=== PATIENT | male | born 1940 | race Caucasian/White ===

== ENCOUNTER 2016-11-04 08:37 | Outpatient (CLI) | payer MEDICARE ==
[~2016-11-04] VITALS: Ht 182.9 cm; Wt 77.1 kg
[2016-11-04] VITALS (14 sets, daily range): BP systolic 104–154; BP diastolic 44–88
[2016-11-04 09:11] LABS: MEAN PLATELET VOLUME 9.8 FL (7.4-10.4); RED BLOOD COUNT 4.09 10^6/uL (4.35-5.85); RED CELL DISTRIBUTION WIDTH 16.6 % (10.0-14.5); WHITE BLOOD COUNT 10.4 10^3/uL (4.3-11.0)
[2016-11-04 09:18] LABS: PROTHROMBIN TIME PATIENT 13.2 SEC (12.2-14.7)
[2016-11-04] MEDS ORDERED: LIDOCAINE 1% INJ 20 ML (XYLOCAINE) VIAL INJ ONE (09:30)
[2016-11-04] MEDS ORDERED: fentaNYL INJECTION 100 MCG/2 ML AMP IVP ONE (09:30)
[2016-11-04] MEDS ORDERED: LIDOCAINE 1% INJ 20 ML (XYLOCAINE) VIAL ONE (09:34)
[2016-11-04] MEDS ORDERED: CLOP75TA69 PO (10:45)
[2016-11-04] MEDS ORDERED: SIME80TA16 PO (10:45)
[2016-11-04] MEDS ORDERED: ASPI-808 PO (10:45)
[2016-11-04] MEDS ORDERED: ATOR40TA70 PO (11:10)
[2016-11-04] MEDS ORDERED: MULT-63 PO (11:10)
[2016-11-04] MEDS ORDERED: SITA100T12 PO (11:10)
[2016-11-04] MEDS ORDERED: LORA10TA7 PO (11:10)
[2016-11-04] MEDS ORDERED: METF500T4 PO (11:10)
[2016-11-04] MEDS ORDERED: BENA20TA72 PO (11:10)
[2016-11-04] MEDS ORDERED: CARV12.53 PO (11:10)
[2016-11-04] MEDS ORDERED: RANI-515 PO (11:10)
--- NOTE | 2016-11-04 11:30 | Progress Note-Pre Operative ---
Pre-Operative Progress Note H&P Reviewed The H&P was reviewed, patient examined and no changes noted. Date H&P Reviewed: Nov 04, 2016 Time H&P Reviewed: 09:30 Pre-Operative Diagnosis: liver mets JUANITA NARANJO MD Nov 04, 2016 11:30
[2016-11-04] MEDS ORDERED: HYDROcodone/APAP 5 MG/325 MG (LORTAB) TAB PO PRN (11:45)
--- NOTE | 2016-11-04 11:55 | Diagnostic Imaging Report ---
EXAMINATION: US-guided core biopsy-liver. INDICATION: Liver masses. Current history and physical and other medical records are reviewed prior to the procedure. CONSENT: Informed consent was obtained from the patient. The risks, benefits, potential complications and alternatives were reviewed and all questions answered to the patient's satisfaction. The patient's vital signs, cardiac rhythm, and pulse oximetry with observed throughout the procedure by qualified nursing personnel. Sedation/medications: none. FINDINGS: The liver is heterogenous with multiple underlying masses seen. PROCEDURE: After maximal sterile barrier technique preparation and draping, 1% lidocaine was utilized for local anesthesia. With the patient in supine position, and via anterior approach, a 17-gauge guide needle is introduced into the right hepatic lobe mass under live ultrasound guidance. After confirming adequate positioning with saved ultrasound images, multiple 18 gauge core biopsy specimens were obtained. Gelfoam injected in the tract as the guide needle was removed The patient tolerated the procedure well with no immediate complications. IMPRESSION: Successful US-guided core biopsy of right hepatic lobe mass. Dictated by: Dictated on workstation # [id number]
--- NOTE | 2016-11-04 12:48 | Discharge Instructions ---
Discharge Instructions Home Medicaitons Changes Hold Aspirin and plavix and any current blood thinner home medications for [24 hours]. JUANITA NARANJO MD Nov 04, 2016 12:48
== END 2016-11-04 15:32 | disposition home or self-care (01) ==
LOC: RAD 08:37 → SURG 11:00 → RAD 15:32
PROVIDERS: ATTEND Family Medicine
DX: C22.9 Malignant neoplasm of liver, not specified as primary or secondary (principal)
CPT/HCPCS: 36415; 76942; 85027; 85610; 85730; 88307; 88341; 88342

== ENCOUNTER → 2016-11-13 | Outpatient (CLI) | payer MEDICARE ==
[~2016-11-13] MED LIST: ALPR0.254 PO; ASPI-808 PO; ATOR40TA70 PO; BENA10TA2 PO; BENA20TA72 PO; CARV12.53 PO; CLOP75TA28 PO; CLOP75TA69 PO; DEXA4TAB PO; DIPH25TA27 PO; DOCU-143 PO; DOCU100C37 PO; GADOBUTROL 7.5 MMOL/7.5 ML (GADAVIST) VIAL IV ONE; LORA10TA7 PO; METF500T4 PO; MULT-63 PO; MULT1TAB69 PO; NITR0.4T SL; OMEP40CA36 PO; ONDA8TAB13 PO; RANI-515 PO; RANI150T90 PO; SIME80TA16 PO; SITA100T12 PO
--- NOTE | 2016-11-13 17:06 | Diagnostic Imaging Report ---
PROCEDURE: MR imaging of the brain with and without contrast. TECHNIQUE: Multiplanar, multisequence MR imaging of the brain was performed with and without contrast. INDICATION: New diagnosis of lung cancer with metastatic disease to the liver. FINDINGS: The ventricles are normal in size, shape and position. There is no diffusion restriction with no acute edema or hemorrhage evident, however there is a focal 4 mm nodular enhancement in the left posterior frontal lobe white matter at the alicea-white junction. There is also a 5 mm enhancing lesion in the posterior right temporal lobe. No other lesions are identified. There is no extra-axial mass or abnormal meningeal enhancement. IMPRESSION: There is a 4 mm and a 5 mm enhancing parenchymal lesion. These are most likely secondary to metastatic disease. Dictated by: Dictated on workstation # [id number]
== END ==
LOC: RAD 15:40
PROVIDERS: ATTEND Internal Medicine Hematology & Oncology
DX: C80.1 Malignant (primary) neoplasm, unspecified (principal)
CPT/HCPCS: 70553

== ENCOUNTER 2016-11-14 05:39 | Outpatient (CLI) | payer MEDICARE ==
[~2016-11-14] VITALS: Ht 182.9 cm; Wt 77.1 kg
[~2016-11-14 05:39] MED LIST changes: -ALPR0.254 PO; -BENA10TA2 PO; -CLOP75TA28 PO; -DEXA4TAB PO; -DIPH25TA27 PO; -DOCU-143 PO; -DOCU100C37 PO; -GADOBUTROL 7.5 MMOL/7.5 ML (GADAVIST) VIAL IV ONE; -MULT1TAB69 PO; -NITR0.4T SL; -OMEP40CA36 PO; -ONDA8TAB13 PO; -RANI150T90 PO
[2016-11-14] MEDS ORDERED: METF500T4 PO (10:56)
[2016-11-14] MEDS ORDERED: BENA10TA2 PO (10:56)
[2016-11-14] MEDS ORDERED: DOCU-143 PO (10:56)
[2016-11-14] MEDS ORDERED: CLOP75TA69 PO (10:56)
[2016-11-14] MEDS ORDERED: CARV12.53 PO (10:56)
[2016-11-14] MEDS ORDERED: RANI150T90 PO (10:56)
[2016-11-14] MEDS ORDERED: ASPI-808 PO (10:56)
[2016-11-14] MEDS ORDERED: SITA100T12 PO (10:56)
[2016-11-14] MEDS ORDERED: SIME80TA16 PO (10:56)
[2016-11-14] MEDS ORDERED: ATOR40TA70 PO (10:56)
[2016-11-14] MEDS ORDERED: MULT1TAB69 PO (12:01)
[2016-11-14] MEDS ORDERED: LORA10TA7 PO (12:01)
== END 2016-11-14 12:02 ==
LOC: PREOP 05:39
PROVIDERS: ATTEND Surgery
DX: Z01.818 Encounter for other preprocedural examination (principal); C34.91 Malignant neoplasm of unspecified part of right bronchus or lung

== ENCOUNTER 2016-11-18 08:52 | Day surgery (SDC) | payer MEDICARE ==
[~2016-11-18] VITALS: Ht 182.9 cm; Wt 77.1 kg
[2016-11-18 08:50] VITALS: BP 135/65
[~2016-11-18 08:52] MED LIST changes: +BENA10TA2 PO; +DOCU-143 PO; +MULT1TAB69 PO; +RANI150T90 PO
[2016-11-18] MEDS ORDERED: HEParin (CENTRAL IV FLUSH) 500 UNIT/5 ML SYR ONE (09:15)
[2016-11-18] MEDS ORDERED: LIDOCAINE 1% INJ 20 ML (XYLOCAINE) VIAL ONE (09:15)
[2016-11-18] MEDS ORDERED: BUPIVACAINE 0.5% 30 ML (SENSORCAINE) VIAL ONE (09:15)
[2016-11-18] MEDS ORDERED: 0.9% SODIUM CHLORIDE PF INJ 20 ML VIAL ONE (09:15)
[2016-11-18] MEDS ORDERED: ceFAZolin 2 GM/NS 50 ML IV ONE (09:30)
[2016-11-18] MEDS ORDERED: LACTATED RINGERS 1,000 ML IV PRN (09:40)
[2016-11-18] MEDS ORDERED: MIDAZOLAM 2 MG/2 ML (VERSED) VIAL ONE (10:26)
[2016-11-18] MEDS ORDERED: fentaNYL INJECTION 100 MCG/2 ML AMP ONE (10:26)
--- NOTE | 2016-11-18 11:22 | Progress Note-Pre Operative ---
Pre-Operative Progress Note H&P Reviewed The H&P was reviewed, patient examined and no changes noted. Date H&P Reviewed: Nov 18, 2016 Time H&P Reviewed: 09:00 Pre-Operative Diagnosis: lung cancer KARL MARINELLI DO Nov 18, 2016 11:22 am
[2016-11-18] MEDS ORDERED: PROPOFOL INJECTION 50 ML IV ONE (11:45)
[2016-11-18] MEDS ORDERED: LACTATED RINGERS 1,000 ML IV ONE (11:45)
[2016-11-18] MEDS ORDERED: ONDANSETRON 4 MG/2 ML (SDV) Z0FRAN ONE (11:46)
--- NOTE | 2016-11-18 12:00 | Progress Note-Post Operative ---
Post-Operative Progess Note Surgeon (s)/Special Effects Artist (s) Surgeon KARL MARINELLI DO Special Effects Artist: 0 Pre-Operative Diagnosis lung cancer Post-Operative Diagnosis same Post-Op Procedure Note Date of Procedure: Nov 18, 2016 Name of Procedure Performed: power port placement rIJ using u/s guidance Description of the Procedure: see note Findings of the Procedure see note Anesthesia Type mac c local Estimated blood loss (mL): minimal Specimen(s) collected/removed none KARL MARINELLI DO Nov 18, 2016 12:00 pm
--- NOTE | 2016-11-18 12:04 | Discharge Inst-Simple/Standard ---
Discharge Inst-Standard Patient Instructions/Follow Up Plan of Care/Instructions/FU: 2 weeks denis Activity as Tolerated: No Discharge Diet: Regular Diet Other Inst to Patient Follow up Appt: Make appointment for 2 week. Instructions: No lifting greater than 10 pounds. No strenuous activity. May shower in 24 hours, no tub bath or soaking. Use incentive spirometer at home as directed. No Smoking Skin/Wound Care: Your port is accessed for for treatment tomorrow. The cancer center will manage your dressing. Place Ice pack on 15 min off 30 min for discomfort and to reduce swelling. Symptoms to Report: Appetite Changes, Extremity Discoloration, Numbness/Tingling, Swelling Increased , Bleeding Excessive, Eyesight Changes, Pain Increased, Urine Color Change, Constipation(Persistent), Fever over 101 degree F, Pain/Pressure in chest, Urinating Difficulty, Cough Up/Vomit Blood, Heart Beat Irreg/Pounding, Pain/ Pressure in jaw, Vaginal Bleeding Increase, Cramps in feet or legs, Lightheadedness, Pain/Pressure in shoulder, Diarrhea(Persistent), Memory Changes Suddenly, Questions/Concerns, Weight gain consecutive days, Dizziness/ Fainting, Nausea/Vomiting, Shortness of Breath, Weight gain over 2 pounds If questions or concerns contact your physician Or seek help at emergency department. KARL MARINELLI DO Nov 18, 2016 12:04 pm
[2016-11-18] MEDS ORDERED: morphine INJ 10 MG/ML 1ML (SYR OR VIAL) IVP PRN (12:15)
[2016-11-18] MEDS ORDERED: MEPERIDINE (DEMEROL) INJ 50 MG/ML IVP PRN (12:15)
[2016-11-18 12:45] VITALS: BP 82/46
[2016-11-18] MEDS ORDERED: FAMOTIDINE 20MG/2ML IV (PEPCID) ONE (12:47)
[2016-11-18] MEDS ORDERED: FAMOTIDINE 20MG/2ML IV (PEPCID) IVP ONE (13:00)
[2016-11-18 13:15] VITALS: BP 89/46
--- NOTE | 2016-11-18 13:28 | Diagnostic Imaging Report ---
INDICATION: Postop port placement. FINDINGS: Catheter via right IJ has its tip overlying the lower SVC. There is no pneumothorax. There are bilateral infiltrates most notably in the mid and lower left lung. No pneumothorax. IMPRESSION: Central line in good position without pneumothorax perihilar infiltrates greater left. Dictated by: Dictated on workstation # [id number]
--- NOTE | 2016-11-18 14:06 | Diagnostic Imaging Report ---
INDICATION: Need for central venous access. DISCUSSION: Fluoroscopic support was provided during intraoperative placement of right chest wall [id number]. Please see the operative report for full detail. Fluoroscopy time: 26 seconds. IMPRESSION: 1. Intraoperative right chest wall [id number] placement. Dictated by: Dictated on workstation # [id number]
[2016-11-18 14:20] VITALS: BP 94/53
[2016-11-18 14:55] VITALS: BP 94/53
--- NOTE | 2016-11-19 10:58 | OPERATIVE REPORT ---
PROCEDURE PHYSICIAN: KARL MARINELLI DATE OF PROCEDURE: 11/18/2016 PREOPERATIVE DIAGNOSIS: Lung cancer. POSTOPERATIVE DIAGNOSIS: Lung cancer. PROCEDURE: Power port placement, right internal jugular vein using ultrasound guidance. SURGEON: Jimi. ANESTHESIA: MAC with local. COMPLICATIONS: None. ESTIMATED BLOOD LOSS: Minimal. INDICATIONS: The patient is a 76-year-old male with lung cancer and to undergo treatment. He understands the risks and benefits of the procedure and wishes to proceed with procedure. Consent was signed on chart. PROCEDURE: The patient was taken to the operating suite. He was prepped and draped in sterile fashion. A surgical pause was performed. With ultrasound of the right internal jugular vein was located. Local anesthetic was infiltrated into the area and using a micro- access kit, the right internal jugular vein was accessed. Dark nonpulsatile blood was withdrawn. The micro-access wire was inserted and the needle was removed. Fluoroscopy assured proper placement. The micro-access dilator was then advanced over the guidewire and the wire was removed. The normal guidewire was inserted and fluoroscopy assured proper placement. The dilator was then removed. Then a regular guidewire was then secured. Local anesthetic was infiltrated along the right neck and onto the right chest and a pocket was created. A number 15 blade scalpel was used to make an incision. Cautery dissection was taken down to the pectoral fascia and then a pocket was created both with cautery and blunt dissection. After this was performed a small stab incision was made at the neck at the wire insertion site. The dilator sheath was then advanced over the wire and the wire was removed along with the dilator. The Groshong catheter was inserted through the sheath and the sheath was then removed. The Groshong wire was removed. The catheter was then tunneled to the right chest and was cut to length using fluoroscopy to assure proper placement and length. The port was secured and placed within the pocket. The port was then accessed without difficulty. It was then flushed with saline and then heparin. The subcutaneous tissues were then reapproximated using 3-0 Vicryl. The skin was then closed using Dermabond at the neck insertion site and also at the incision on the right chest. This was allowed to be dried after it was cleaned and dried and a sterile bandage was applied. The port was left access for treatment tomorrow. The patient tolerated the procedure well without any complications and taken to recovery room in stable condition. Chest x-ray is pending. Job ID: [id number] Dictated Date: 11/18/2016 13:14:26 Clinical Courier Date: 11/19/2016 10:51:38 / mir
== END 2016-11-18 14:55 | disposition home or self-care (01) ==
LOC: SDC 08:52
PROVIDERS: ATTEND Surgery
DX: C34.32 Malignant neoplasm of lower lobe, left bronchus or lung (principal); E11.9 Type 2 diabetes mellitus without complications; Z11.2 Encounter for screening for other bacterial diseases
CPT/HCPCS: 71010; 82962; 87081; 93005

== ENCOUNTER 2016-12-10 13:54 | Inpatient (IN) | payer MEDICARE ==
[~2016-12-10] VITALS: Ht 182.9 cm; Wt 77.1 kg
[2016-12-10] MEDS ORDERED: ACETAMINOPHEN 325 MG TABLET/CAPLET (TYLENOL) PO PRN (14:00)
[2016-12-10] MEDS ORDERED: PATIENT MAY USE OWN MEDS, ALL PO SCH (14:00)
[2016-12-10] MEDS ORDERED: MILK OF MAGNESIA 400 MG/5 ML 30 ML UDC PO PRN (14:00)
[2016-12-10] MEDS ORDERED: SENNA W/DOCUSATE (SENOKOT S) TABLET PO PRN (14:00)
[2016-12-10] MEDS ORDERED: ONDANSETRON 4 MG/2 ML (SDV) Z0FRAN IV PRN (14:00)
[2016-12-10 14:10] VITALS: BP 171/67
[2016-12-10] MEDS ORDERED: DOCU100C37 PO (14:53)
[2016-12-10] MEDS ORDERED: NITR0.4T SL (14:53)
[2016-12-10] MEDS ORDERED: CLOP75TA28 PO (14:53)
[2016-12-10] MEDS ORDERED: DEXA4TAB PO (14:53)
[2016-12-10] MEDS ORDERED: OMEP40CA36 PO (14:53)
[2016-12-10] MEDS ORDERED: ALPR0.254 PO (14:53)
[2016-12-10] MEDS ORDERED: ONDA8TAB13 PO (14:53)
--- NOTE | 2016-12-10 15:38 | Oncology History & Physical ---
Visit Information Visit Information Date of Admission Dec 10, 2016 at 14:13 Attending Physician Osito Hope MD Admitting Physician Osito Hope MD Chief Complaint weakness, fall and dizziness Interval History Mr. Leyva is 76 year old white man with small cell lung cancer extensive disease, bone, liver and brain mets on Carb0+BOAT RENTAL CLERK 16 chemotherapy. He felt better after chemotherapy because of the steroid that he got from the chemo. He also notice his jaundice is better. But he is getting weak and not able to eat much. He lost about 8lb over last 2 weeks along with general weakness and light headedness and dizziness. He fell at home last weekend and then fell again in the garage today while his was trying to get him into the car for his doctor's appointment. "I am just so weak like noddles." ? low grade fever at night per his . I consulted the patient on: 12/10/16 15:31 Constitutional: weakness, weight loss Respiratory: orthopnea, short of breath Cardiovascular: palpitations Gastrointestinal: constipation, heartburn, jaundice, loss of appetite, nausea Musculoskeletal: muscle stiffness, muscle weakness Psychiatric/Neurological: Anxiety Health Status Allergies Coded Allergies: No Known Drug Allergies (Unverified , 11/04/16) Home Medications Alprazolam (Alprazolam) 0.25 Mg Tablet, 0.25 MG PO BID PRN for ANXIETY, ( Reported) Aspirin (Aspirin) 325 Mg Tablet, 325 MG PO DAILY, (Reported) Atorvastatin Calcium (Atorvastatin Calcium) 40 Mg Tablet, 40 MG PO HS, (Reported ) Benazepril HCl (Benazepril HCl) 10 Mg Tablet, 10 MG PO DAILY, (Reported) Carvedilol (Carvedilol) 12.5 Mg Tablet, 12.5 MG PO BID, (Reported) Clopidogrel Bisulfate (Clopidogrel) 75 Mg Tablet, 75 MG PO DAILY, (Reported) Dexamethasone (Dexamethasone) 4 Mg Tablet, 8 MG PO BID, (Reported) TAKES 2 (4 MG) TABLETS / FILLED 12/03/16 #40 FOR A 10 DAY THERAPY Docusate Sodium (Docusate Sodium) 100 Mg Capsule, 100 MG PO BID, (Reported) Loratadine (Loratadine) 10 Mg Tablet, 10 MG PO DAILY PRN for ALLERGIES, ( Reported) Metformin HCl (Metformin HCl) 500 Mg Tablet, 500 MG PO TID, (Reported) Multivitamin (Multivitamins) 1 Each Tablet, 1 TAB PO DAILY@1200, (Reported) Nitroglycerin (Nitrostat) 0.4 Mg Tab.subl, 0.4 MG SL DAILY PRN PRN for CHEST PAIN, (Reported) Omeprazole (Omeprazole) 40 Mg Capsule.dr, 40 MG PO DAILY, (Reported) Ondansetron (Ondansetron Odt) 8 Mg Tab.rapdis, 8 MG PO Q8H PRN for NAUSEA/ VOMITING-1ST LINE, (Reported) Simethicone (Simethicone) 80 Mg Tab.chew, 80 MG PO TIDAC PRN for GAS, (Reported) Sitagliptin Phosphate (Januvia) 100 Mg Tablet, 100 MG PO DAILY, (Reported) HAP-Blgpyg-Caulmc Hx Patient Social History Recent Hopitalizations: No Immunizations Up To Date Date of Pneumonia Vaccine: Nov 14, 2012 Date of Influenza Vaccine: May 18, 2016 Data Review Labs Laboratory Tests 12/11/16 20:55 Laboratory Tests 12/11/16 20:55: White Blood Count 11.8H, Red Blood Count 3.45L, Hemoglobin 10.3L, Hematocrit 32L , Red Cell Distribution Width 17.8H, Platelet Count 538H, Neutrophils (%) (Auto ) 80H, Lymphocytes (%) (Auto) 4L, Monocytes (%) (Auto) 16H, Neutrophils # (Auto ) 9.4H, Lymphocytes # (Auto) 0.5L, Monocytes # (Auto) 1.9H, Sodium Level 130L, Chloride Level 87L, Glucose Level 331H, Total Bilirubin 1.9H, Aspartate Amino Transf (AST/SGOT) 51H, Alanine Aminotransferase (ALT/SGPT) 80H, Alkaline Phosphatase 501H, Total Protein 6.1L, Albumin 3.1L Physical Exam Vital Signs Vital Sign - Last 12Hours 12/10/16 12/10/16 14:10 15:30 Temp 98.0 Pulse 115 Resp 22 B/P (MAP) 171/67 Pulse Ox 92 O2 Delivery Room Air O2 Flow Rate 3.50 Capillary Refill : General Appearance: Mild Distress HEENT: PERRL/EOMI, Scleral Icterus (L), Scleral Icterus (R) Neck: Non Tender, Supple Respiratory: No Accessory Muscle Use, Crackles, Decreased Breath Sounds Cardiovascular: Regular Rate, Rhythm Gastrointestinal: Distended, Hepatomegaly Extremity: Swelling Neurologic/Psychiatric: Alert Impression & Plan Impression & Plan IMP: 1. Small cell lung cancer extensive disease, bone, liver and brain mets, s/p cycle #1 chemotherapy, LFT improved. 2. General weakness, falling and dizziness, . Multifactors: chemo toxicities, cancer and anemia and brain mets 3. Nausea weight loss 8lb over 1-2 weeks, dehydration 4. Pt's is also a cancer patient and not able to take care of him at home. She is not able to get patient up when he fell at home. 5. Anxiety 6. Peripheral vascular disease of right lower extremity, s/p stents placement 7. Anemia, multifactors Plan: 1. Admit to 4th floor 2. Hold off chemo for now 3. Gentle hydration 4. Zofran IV 5. Continue Decadron along with Protonix 6. trolley worker consult for placement, ??alf 7. Pt is DNR but not ready for hospice yet. 8. Pt is taking Plavix and ASA 325mg daily. He does not need other DVT prophylaxis. OSITO HOPE MD Dec 10, 2016 15:38
[2016-12-10 16:00] VITALS: BP 162/72
[2016-12-10] MEDS: NS IV 1000 ML 1,000 ML IV SCH (16:53)
[2016-12-10] MEDS: DEXAMETHASONE 4 MG TAB (DECADRON) PO SCH (18:51)
[2016-12-10 20:00] VITALS: BP 162/69
[2016-12-10] MEDS: ALPRAZolam 0.25 MG (XANAX) TAB PO PRN (21:27)
[2016-12-10] MEDS: diphenhydrAMINE 25 MG TAB (BENADRYL) PO PRN (23:48)
[2016-12-11 00:44] VITALS: BP 177/88
[2016-12-11 04:43] VITALS: BP 166/82
[2016-12-11] MEDS: PANTOPRAZOLE 40 MG (PROTONIX) TAB PO SCH (06:05)
[2016-12-11] MEDS: ASPIRIN E.C. 325 MG (ECOTRIN) TABLET PO SCH (07:40)
[2016-12-11] MEDS: DEXAMETHASONE 4 MG TAB (DECADRON) PO SCH ×2 (07:41→17:51)
[2016-12-11] MEDS: CLOPIDOGREL 75 MG (PLAVIX) TABLET PO SCH (07:41)
[2016-12-11 08:00] VITALS: BP 175/86
[2016-12-11] MEDS: NS IV 1000 ML 1,000 ML IV SCH ×2 (10:13→20:50)
[2016-12-11 12:00] VITALS: BP 182/86
[2016-12-11 15:45] VITALS: BP 179/91
[2016-12-11 19:30] VITALS: BP 171/78
--- NOTE | 2016-12-11 20:36 | Oncology Progress Note ---
Subjective Subjective/Events-last exam Pt is feeling somewhat better today Less dizziness. "head is more clear" Physical Exam Vital Signs Vital Sign - Last 12Hours 12/10/16 12/10/16 14:10 15:30 Temp 98.0 Pulse 115 Resp 22 B/P (MAP) 171/67 Pulse Ox 92 O2 Delivery Room Air O2 Flow Rate 3.50 Capillary Refill : General Appearance: No Apparent Distress HEENT: PERRL/EOMI, Scleral Icterus (L), Scleral Icterus (R) Neck: Non Tender, Supple Respiratory: No Accessory Muscle Use, Crackles Cardiovascular: Regular Rate, Rhythm, No JVD Gastrointestinal: Soft, Distended, Hepatomegaly Extremity: Swelling Neurologic/Psychiatric: Alert, Oriented x3 Impression & Plan Impression & Plan IMP: 1. Small cell lung cancer extensive disease, bone, liver and brain mets, s/p cycle #1 chemotherapy, LFT improved. 2. General weakness, falling and dizziness, . Multifactors: chemo toxicities, cancer and anemia and brain mets 3. Nausea weight loss 8lb over 1-2 weeks, dehydration 4. Pt's is also a cancer patient and not able to take care of him at home. She is not able to get patient up when he fell at home. 5. Anxiety 6. Peripheral vascular disease of right lower extremity, s/p stents placement 7. Anemia, multifactors Plan: 1. Consult PT and OT 2. Hold off chemo for now 3. Gentle hydration. Hold fluid at night to reduce the risk of falls. 4. Zofran IV 5. Continue Decadron along with Protonix 6. knockdown worker consult for placement, ??correction 7. Pt is DNR but not ready for hospice yet. 8. Pt is taking Plavix. He does not need other DVT prophylaxis. Clinical Quality Measures DVT/VTE Risk/Contraindication: Risk Factor Score Per Nursin RFS Level Per Nursing on Admit: 4+=Very High PAYTON HOPE MD Dec 11, 2016 20:36
[2016-12-11] MEDS: ALPRAZolam 0.25 MG (XANAX) TAB PO PRN (20:50)
[2016-12-11] MEDS: diphenhydrAMINE 25 MG TAB (BENADRYL) PO PRN (20:50)
[2016-12-11] MEDS: CARVEDILOL 12.5 MG (COREG) TABLET PO SCH (20:50)
[2016-12-11 21:03] LABS: BASOPHILS % (AUTO) 0 % (0-10); EOSINOPHILS # (AUTO) 0.1 10^3/uL (0.0-0.3); EOSINOPHILS % (AUTO) 0 % (0-10); LYMPHOCYTES # (AUTO) 0.5 X 10^3 (1.0-4.0); LYMPHOCYTES % (AUTO) 4 % (12-44); MEAN CORPUSCULAR HEMOGLOBIN 30 PG (25-34); MEAN CORPUSCULAR HGB CONC 33 G/DL (32-36); MEAN CORPUSCULAR VOLUME 92 FL (80-99); MEAN PLATELET VOLUME 9.5 FL (7.4-10.4); MONOCYTES # (AUTO) 1.9 X 10^3 (0.0-1.0); MONOCYTES % (AUTO) 16 % (0-12); NEUTROPHILS # (AUTO) 9.4 X 10^3 (1.8-7.8); NEUTROPHILS % (AUTO) 80 % (42-75); PLATELET COUNT 538 10^3/uL (130-400); RED BLOOD COUNT 3.45 10^6/uL (4.35-5.85); RED CELL DISTRIBUTION WIDTH 17.8 % (10.0-14.5); WHITE BLOOD COUNT 11.8 10^3/uL (4.3-11.0)
[2016-12-11 21:22] LABS: ALANINE AMINOTRANSFERASE 80 U/L (0-55); ALBUMIN 3.1 G/DL (3.2-4.5); ANION GAP 11 MMOL/L (5-14); ASPARTATE AMINO TRANSFERASE 51 U/L (5-34); BILIRUBIN,TOTAL 1.9 MG/DL (0.1-1.0); BLOOD UREA NITROGEN 16 MG/DL (7-18); BUN/CREATININE RATIO 24; CALCIUM 8.9 MG/DL (8.5-10.1); CARBON DIOXIDE 32 MMOL/L (21-32); CHLORIDE 87 MMOL/L (98-107); CREATININE SERUM 0.68 MG/DL (0.60-1.30); GFR ESTIMATED > 60; GLUCOSE 331 MG/DL (70-105); POTASSIUM 4.6 MMOL/L (3.6-5.0); SODIUM 130 MMOL/L (135-145); TOTAL PROTEIN 6.1 G/DL (6.4-8.2)
[2016-12-12] MEDS: PANTOPRAZOLE 40 MG (PROTONIX) TAB PO SCH (06:08)
[2016-12-12 07:56] VITALS: BP 143/73
[2016-12-12] MEDS: CARVEDILOL 12.5 MG (COREG) TABLET PO SCH ×2 (08:25→20:35)
[2016-12-12] MEDS: BENAZEPRIL 10 MG (LOTENSIN) TAB PO SCH (08:25)
[2016-12-12] MEDS: ASPIRIN E.C. 325 MG (ECOTRIN) TABLET PO SCH (08:25)
[2016-12-12] MEDS: DEXAMETHASONE 4 MG TAB (DECADRON) PO SCH (08:25)
[2016-12-12] MEDS: CLOPIDOGREL 75 MG (PLAVIX) TABLET PO SCH (08:25)
[2016-12-12 09:00] VITALS: BP 143/73
--- NOTE | 2016-12-12 09:47 | Physical Therapy Evaluation ---
PT Evaluation-General Medical Diagnosis Admission Date Dec 10, 2016 at 14:13 Medical Diagnosis: small cell lung cancer Onset Date: Dec 10, 2016 Therapy Diagnosis Therapy Diagnosis: generalized weakness/debility Height/Weight Height (Feet): 6 Height (Inches): 0.00 Weight (Pounds): 170 Weight (Ounces): 0.0 Precautions Precautions/Isolations: Fall Prevention, Standard Precautions Referral Physician: Keya Reason for Referral: Evaluation/Treatment Medical History Pertinent Medical History: PVD Additional Medical History metastatic cancer to bone, liver and brain Current History 8 lb. wt loss in 2 wks increase light headedness/dizziness 2 falls at home spouse also has cancer treatments currently Reviewed History: Yes Social History Home: Single Level Current Living Status: Spouse Entry Into Home: Stairs With Railing PT Steps Into Home: 2 Prior/Core FIM Prior Level of Function Functional [place] Measure 0=Not Assessed/NA 4=Minimal Assistance 1=Total Assistance 5=Supervision or Setup 2=Maximal Assistance 6=Modified [place] 3=Moderate Assistance 7=Complete [place] Bed Mobility: 6 Transfers (B,C,W/C) (FIM): 6 Gait: 6 uses FWW PLOF PT Evaluation-Current Subjective Patient agrees to PT. Patient does c/o weakness. Pain Numeric Pain Scale: 0-No Pain Objective Patient Orientation: Normal For Age Problem Solving: Good Attachments: Oxygen (4L), IV ROM/Strength ROM Lower Extremities bilateral LE WFL Strenght Lower Extremities right knee flexion/extension 3/5; hip flexion 3/5; ankle dorsi/plantarflexion 4 /5 left knee flexion/extension 3/5; hip flexion 3/5; ankle dorsi/plantarflexion 4/5 Integumentary/Posture Integumentary refer to nursing notes; noted pitting edema bilateral LE's Bowel Incontinence: No Bladder Incontinence: No Posture WNL Neuromuscular (Tone, Coordination, Reflexes) grossly intact Sensory Vision: Wears Glasses Hearing: Functional Sensation Right Lower Extremit: Impaired Sensation Left Lower Extremity: Impaired Transfers Functional [place] Measure 0=Not Assessed/NA 4=Minimal Assistance 1=Total Assistance 5=Supervision or Setup 2=Maximal Assistance 6=Modified [place] 3=Moderate Assistance 7=Complete [place] Transfers (B, C, W/C) (FIM): 5 Scootin Rollin Supine to/from Sit: 5 Sit to/from Stand: 5 Gait Mode of Locomotion: Walk Anticipated Mode of Locomotion: Walk Gait (FIM): 5 Distance (FIM): 3=150 ft Distance: 150' Gait Level of Assist: 5 Gait Assistive Device: FWW Comments/Gait Description safe and functional with FWW Balance Sitting Static: Normal Sitting Dynamic: Normal Standing Static: Normal Standing Dynamic: Normal Assessment/Needs 76 y.o. male, will benefit from skilled PT to address functional strength and mobility to improve current LOF. Patient requires time to complete all functional tasks due to weakness. Rehab Potential: Guarded Post Rehab Potential-Barriers: metastatic cancer PT Senior Living Goals Senior Living Goals PT Senior Living Goals Time Frame: December 26, 2016 Transfers (B,C,W/C) (FIM): 6 Gait (FIM): 6 Gait distance (FIM): 3=150 ft Distance: 250' Gait Level of Assist: 6 Gait Assistive Device: FWW PT Plan Problem List Problem List: Activity Tolerance, Functional Strength Treatment/Plan Treatment Plan: Continue Plan of Care Treatment Plan: Bed Mobility, Education, Functional Activity Neo, Functional Strength, Gait, Safety, Therapeutic Exercise, Transfers Treatment Duration: December 26, 2016 # of days/week 6 Visits Per Week: 6 Discharge Recommendations Therapy D/C Recommendations: Assisted (TCU/NH) Time/GCodes Time In: 830 Time Out: 855 Total Billed Treatment Time: 25 Total Billed Treatment 1 visit EVMod 25 min MULU SANTILLAN PT Dec 12, 2016 09:47
--- NOTE | 2016-12-12 15:05 | Occupational Therapy Eval ---
OT Evaluation-General/PLF Medical Diagnosis Admission Date Dec 10, 2016 at 14:13 Medical Diagnosis: small cell lung cancer Onset Date: Dec 10, 2016 Therapy Diagnosis Therapy Diagnosis: weakness, decreased ADL skills Height/Weight Height (Feet): 6 Height (Inches): 0.00 Weight (Pounds): 170 Weight (Ounces): 0.0 Precautions Precautions/Isolations: Fall Prevention, Standard Precautions Safety Interventions: None Weight Bear Status Weight Bearing Restriction: Weight Bearing/Tolerated Referral Physician: Keya Referral Reason: Activity Tolerance, Self Care, Evaluation/Treatment, Strengthening/ROM Medical History Pertinent Medical History: PVD Additional Medical History Nausea, anxiety, anemia, CA in bone, liver, brain METS. Current History Pt. fell several times at home. Was weak. Pt. is a DNR but not ready for hospice. Pt. to discharge to [facility] tomorrow. Reviewed History: Yes Social History Home: Single Level Current Living Status: Spouse Entry Into Home: Stairs With Railing Steps Into Home: 3 ADL-Prior Level of Function ADL PLOF Comments Pt. was originally independent with basic ADL skills. Lives in [place] with spouse , who also has cancer. DME/Equipment: Shower, Toilet/Riser DME/Equipment Comments Pt. has walker OT Current Status Subjective Pt. does not report pain. Appearance Pt. is in bed. Agrees to work with therapy. Mental Status/Objective Patient Orientation: Person, Place, Time, Situation Current Glasses/Contacts: Yes Hearing Aids: No Dentures/Partials: No Hand Dominance: Right Upper Extremity ROM WFL Upper Extremity Coordination intact Upper Extremity Strength 3/5 bilateral UE ADL-Treatment Functional [place] Measure 0=Not Assessed/NA 4=Minimal Assistance 1=Total Assistance 5=Supervision or Setup 2=Maximal Assistance 6=Modified [place] 3=Moderate Assistance 7=Complete IndependenceIRFPAI Quality Coding Scale 6 Independent with activity with or without an assistive device 5 Patient requires set up or clean up by helper. Patient completes activity by themselves 4 Supervision or touching assist (CGA). [place] provide cues , steadying assist 3 The helper provides less than half the effort to complete the activity 2 The helper provides more than half the effort to complete the activity 1 Dependent. The helper does all the effort to complete an activity 7 Patient refused to complete or attempt activity 9 The patient did not perform the activity before the current illness or injury 88 Not attempted due to Medical conditions or safety concerns Eating (FIM): 7 Lower Body Dressing (FIM): 5 (Pt. is able to doff/don shoes, but does require increased time to complete this, as he becomes SOA.) Transfers (B, C, W/C) (FIM): 5 (Pt. is able to transfer supine-sit and then sit -stand with SBA. Is able to transfer back to supine with SBA.) Other Treatments Pt. presents with a distended belly. Demonstrates difficulty bending over to reach feet. Becomes SOA. Is somewhat jaundice. Education OT Patient Education: Correct positioning, Modified ADL techniques, Progress toward Goal/Update tx plan, Purpose of tx/functional activities, Reviewed precautions, Rehab process, Transfer techniques Teaching Recipient: Patient Teaching Methods: Demonstration, Discussion Response to Teaching: Verbalize Understanding, Return Demonstration OT Short Term Goals Short Term Goals Time Frame: Dec 12, 2016 1=Demonstrate adherence to instructed precautions during ADL tasks. 2=Patient will verbalize/demonstrate understanding of assistive devices/ modifications for ADL. 3=Patient will improve strength/tolerance for activity to enable patient to perform ADL's. OT Cfo Controller Goals Alf Goals Time Frame: December 19, 2016 Eating (FIM): 7 Grooming(FIM): 6 Bathing(FIM): 5 Upper Body Dressing(FIM): 5 Lower Body Dressing(FIM): 5 Toileting(FIM): 6 Transfers (B,C,W/C) (FIM): 6 Toilet/Commode Transfer(FIM): 6 Shower Transfer(FIM): 5 Additional Goals: 1-Demonstrate ADL Tasks, 2-Verbalize Understanding, 3- ImproveStrength/Neo 1=Demonstrate adherence to instructed precautions during ADL tasks. 2=Patient will verbalize/demonstrate understanding of assistive devices/ modifications for ADL. 3=Patient will improve strength/tolerance for activity to enable patient to perform ADL's. OT Education/Plan Problem List/Assessment Assessment: Decreased Activ Tolerance, Decreased UE Strength, Dependent Transfers, Impaired Bed Mobility, Impaired Funct Balance, Impaired I ADL's, Impaired Self-Care Skills, Restricted Funct UE ROM Discharge Recommendations Plan/Recommendations: Continue POC Therapy D/C Recommendations: Shelter (TCU/NH) Equpiment Recommendations-D/C: Hip Kit Target Placement Pt. plans to discharge [facility]. Treatment Plan/Plan of Care Treatment,Training & Education: Yes Patient would benefit from OT for education, treatment and training to promote independence in ADL's, mobility, safety and/or upper extremity function for ADL' s. Plan of Care: ADL Retraining, Functional Mobility, UE Funct Exercise/Act Treatment Duration: December 19, 2016 Visits Per Week: 5-6 Agreement: Yes Rehab Potential: Fair Time/GCodes Start Time: 09:30 Stop Time: 09:45 Total Time Billed (hr/min): 15 Billed Treatment Time 1, ANDERSON Gregorio OT Dec 12, 2016 15:05
[2016-12-12] MEDS: NS IV 1000 ML 1,000 ML IV SCH (16:11)
[2016-12-12] MEDS ORDERED: DIPH25TA27 PO (16:53)
[2016-12-12] MEDS ORDERED: DEXA4TAB PO (16:53)
[2016-12-12] MEDS ORDERED: ALPR0.254 PO (16:53)
--- NOTE | 2016-12-12 17:06 | Oncology Progress Note ---
Subjective Subjective/Events-last exam "I had a good sleep last night and felt much better today. I like the Benadryl and Xanax to help me sleep at night. I am ready to go to retirement tomorrow. " Data Review Labs Laboratory Tests 12/11/16 20:55 Laboratory Tests 12/11/16 20:55: White Blood Count 11.8H, Red Blood Count 3.45L, Hemoglobin 10.3L, Hematocrit 32L , Red Cell Distribution Width 17.8H, Platelet Count 538H, Neutrophils (%) (Auto ) 80H, Lymphocytes (%) (Auto) 4L, Monocytes (%) (Auto) 16H, Neutrophils # (Auto ) 9.4H, Lymphocytes # (Auto) 0.5L, Monocytes # (Auto) 1.9H, Sodium Level 130L, Chloride Level 87L, Glucose Level 331H, Total Bilirubin 1.9H, Aspartate Amino Transf (AST/SGOT) 51H, Alanine Aminotransferase (ALT/SGPT) 80H, Alkaline Phosphatase 501H, Total Protein 6.1L, Albumin 3.1L Physical Exam Vital Signs Vital Sign - Last 12Hours 12/10/16 12/10/16 14:10 15:30 Temp 98.0 Pulse 115 Resp 22 B/P (MAP) 171/67 Pulse Ox 92 O2 Delivery Room Air O2 Flow Rate 3.50 Capillary Refill : General Appearance: No Apparent Distress HEENT: PERRL/EOMI Neck: Non Tender, Supple Respiratory: No Accessory Muscle Use, No Respiratory Distress, Crackles Cardiovascular: Regular Rate, Rhythm, No JVD Gastrointestinal: Non Tender, Soft, Distended, Hepatomegaly, Other (acites) Extremity: Pedal Edema, Swelling Neurologic/Psychiatric: Alert, Oriented x3 Impression & Plan Impression & Plan IMP: 1. Small cell lung cancer extensive disease, bone, liver and brain mets, s/p cycle #1 chemotherapy, LFT improved. 2. General weakness, falling and dizziness, . Multifactors: chemo toxicities, cancer and anemia and brain mets 3. Nausea weight loss 8lb over 1-2 weeks, dehydration 4. Pt's is also a cancer patient and not able to take care of him at home. She is not able to get patient up when he fell at home. 5. Anxiety 6. Peripheral vascular disease of right lower extremity, s/p stents placement 7. Anemia, multifactors Plan: 1. PT and OT here and at retirement 2. Hold off chemo for now 3. Stop IVF 4.Discharge tomorrow to [facility] and admit to skill over there with PT and OT. 5. 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 7. Pt is DNR but not ready for hospice yet. 8. Pt is taking Plavix and ASA 325mg daily. He does not need other DVT prophylaxis. 9. Return to cancer center next FridayDecember 17 at 10am to discuss possible chemo treatment. Please make sure retirement knows to arrange transportation. 10. Discharge instruction and med list are ready for tomorrow. Clinical Quality Measures DVT/VTE Risk/Contraindication: Risk Factor Score Per Nursin RFS Level Per Nursing on Admit: 4+=Very High PAYTON HOPE MD Dec 12, 2016 17:06
[2016-12-12 20:00] VITALS: BP 164/75
[2016-12-12] MEDS: diphenhydrAMINE 25 MG TAB (BENADRYL) PO PRN (21:38)
[2016-12-12] MEDS: ALPRAZolam 0.25 MG (XANAX) TAB PO PRN (21:38)
[2016-12-13] MEDS: PANTOPRAZOLE 40 MG (PROTONIX) TAB PO SCH (06:33)
[2016-12-13 08:01] VITALS: BP 120/58
[2016-12-13] MEDS: ASPIRIN E.C. 325 MG (ECOTRIN) TABLET PO SCH (08:07)
[2016-12-13] MEDS: CARVEDILOL 12.5 MG (COREG) TABLET PO SCH (08:07)
[2016-12-13] MEDS: BENAZEPRIL 10 MG (LOTENSIN) TAB PO SCH (08:08)
[2016-12-13] MEDS: CLOPIDOGREL 75 MG (PLAVIX) TABLET PO SCH (08:08)
[2016-12-13] MEDS: DEXAMETHASONE 4 MG TAB (DECADRON) PO SCH (08:08)
--- NOTE | 2016-12-13 09:51 | Oncology Discharge Summary ---
Diagnosis/Chief Complaint Date of Admission Dec 10, 2016 at 14:13 Date of Discharge Discharge Date: Dec 13, 2016 Discharge Diagnosis 1. Small cell lung cancer extensive disease, bone, liver and brain mets, s/p cycle #1 chemotherapy, LFT improved. 2. General weakness, falling and dizziness. Multifactors: chemo toxicities, cancer and anemia and brain mets 3. Nausea weight loss 8lb over 1-2 weeks, dehydration 4. Pt's is also a cancer patient and not able to take care of him at home. She is not able to get patient up when he fell at home. 5. Anxiety 6. Peripheral vascular disease of right lower extremity, s/p stents placement on Plavix and ASA 325mg daily 7. Anemia, multifactors 8. Pt is DNR but not ready for hospice yet. Reason Hospital Visit Mr. 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 He was admitted for dehydration, nausea about 8lb over last 2 weeks and general weakness and light headedness and dizziness. He fell at home last weekend and then fell again in the garage while his was trying to get him into the car for his doctor's appointment. "I am just so weak like noddles." His was also a cancer patient on chemo and she was not able to take care of the patient at home. Pt was so worried about his and not able to sleep well for days. We admitted patient for IVF and antiemetics. His chemo was on hold. He got better and dizziness resolved but still very weak. Pt and agreed for him to snf. He will be discharged to [facility] for PT and OT. He will continue Xanax and Benadryl at night for sleep. Discharge condition: Stable but still very weak in general Follow up" Dr Hope at cancer center 12/16/16 10am. [facility] needs to arrange transportation Medications. see discharge med list Discharge Summary Discharge Instructions to patient/family Please see electonic discharge instructions given to patient. Discharge Medications Reviewed and agree with Discharge Medication list on patient's Discharge Instruction sheet Clinical Quality Measures DVT/VTE Risk/Contraindication: Risk Factor Score Per Nursin RFS Level Per Nursing on Admit: 4+=Very High PAYTON HOPE MD Dec 13, 2016 09:51
== END 2016-12-13 11:28 | DRG 641 ==
LOC: 4TH 14:13
PROVIDERS: ADMIT Internal Medicine Hematology & Oncology; ATTEND Internal Medicine Hematology & Oncology
DX: E86.0 Dehydration (principal); C34.92 Malignant neoplasm of unspecified part of left bronchus or lung; C79.51 Secondary malignant neoplasm of bone; C78.7 Secondary malignant neoplasm of liver and intrahepatic bile duct; C79.31 Secondary malignant neoplasm of brain; R11.0 Nausea; D64.9 Anemia, unspecified; R53.1 Weakness; Z66 Do not resuscitate; R42 Dizziness and giddiness; R63.4 Abnormal weight loss; F41.9 Anxiety disorder, unspecified; R00.2 Palpitations; K59.00 Constipation, unspecified; I73.9 Peripheral vascular disease, unspecified; Z91.81 History of falling; Z79.01 Long term (current) use of anticoagulants; Z95.5 Presence of coronary angioplasty implant and graft
CPT/HCPCS: 36415; 80053; 85025

== ENCOUNTER 2016-12-16 09:32 | Outpatient (RCR) | payer MEDICARE ==
[2016-11-12 10:29] LABS: BASOPHILS % (AUTO) 0 % (0-10); EOSINOPHILS # (AUTO) 0.2 10^3/uL (0.0-0.3); EOSINOPHILS % (AUTO) 3 % (0-10); LYMPHOCYTES # (AUTO) 0.5 X 10^3 (1.0-4.0); LYMPHOCYTES % (AUTO) 6 % (12-44); MEAN CORPUSCULAR HEMOGLOBIN 30 PG (25-34); MEAN CORPUSCULAR HGB CONC 33 G/DL (32-36); MEAN CORPUSCULAR VOLUME 90 FL (80-99); MEAN PLATELET VOLUME 9.6 FL (7.4-10.4); MONOCYTES % (AUTO) 12 % (0-12); NEUTROPHILS # (AUTO) 6.4 X 10^3 (1.8-7.8); NEUTROPHILS % (AUTO) 79 % (42-75); PLATELET COUNT 224 10^3/uL (130-400); RED BLOOD COUNT 3.77 10^6/uL (4.35-5.85); RED CELL DISTRIBUTION WIDTH 17.2 % (10.0-14.5)
[2016-11-12 11:09] LABS: ALANINE AMINOTRANSFERASE 173 U/L (0-55); ALBUMIN 3.1 G/DL (3.2-4.5); ANION GAP 11 MMOL/L (5-14); ASPARTATE AMINO TRANSFERASE 173 U/L (5-34); BILIRUBIN,TOTAL 3.9 MG/DL (0.1-1.0); BLOOD UREA NITROGEN 15 MG/DL (7-18); BUN/CREATININE RATIO 22; CALCIUM 9.5 MG/DL (8.5-10.1); CARBON DIOXIDE 28 MMOL/L (21-32); CHLORIDE 88 MMOL/L (98-107); CREATININE SERUM 0.69 MG/DL (0.60-1.30); GFR ESTIMATED > 60; GLUCOSE 188 MG/DL (70-105); LACTATE DEHYDROGENASE 590 U/L (125-220); MAGNESIUM 1.5 MG/DL (1.8-2.4); PHOSPHORUS 2.8 MG/DL (2.3-4.7); POTASSIUM 4.8 MMOL/L (3.6-5.0); SODIUM 127 MMOL/L (135-145); TOTAL PROTEIN 6.1 G/DL (6.4-8.2); URIC ACID 3.5 MG/DL (2.6-7.2)
[2016-11-19 10:07] LABS: BASOPHILS % (AUTO) 0 % (0-10); EOSINOPHILS # (AUTO) 0.2 10^3/uL (0.0-0.3); EOSINOPHILS % (AUTO) 1 % (0-10); LYMPHOCYTES # (AUTO) 0.8 X 10^3 (1.0-4.0); LYMPHOCYTES % (AUTO) 7 % (12-44); MEAN CORPUSCULAR HEMOGLOBIN 30 PG (25-34); MEAN CORPUSCULAR HGB CONC 33 G/DL (32-36); MEAN CORPUSCULAR VOLUME 92 FL (80-99); MEAN PLATELET VOLUME 9.8 FL (7.4-10.4); MONOCYTES # (AUTO) 1.5 X 10^3 (0.0-1.0); MONOCYTES % (AUTO) 13 % (0-12); NEUTROPHILS # (AUTO) 8.9 X 10^3 (1.8-7.8); NEUTROPHILS % (AUTO) 78 % (42-75); PLATELET COUNT 307 10^3/uL (130-400); RED BLOOD COUNT 3.59 10^6/uL (4.35-5.85); RED CELL DISTRIBUTION WIDTH 17.4 % (10.0-14.5); WHITE BLOOD COUNT 11.4 10^3/uL (4.3-11.0)
[2016-11-19 10:45] LABS: ALANINE AMINOTRANSFERASE 114 U/L (0-55); ANION GAP 9 MMOL/L (5-14); ASPARTATE AMINO TRANSFERASE 138 U/L (5-34); BILIRUBIN,TOTAL 3.8 MG/DL (0.1-1.0); BLOOD UREA NITROGEN 19 MG/DL (7-18); BUN/CREATININE RATIO 22; CALCIUM 9.7 MG/DL (8.5-10.1); CARBON DIOXIDE 32 MMOL/L (21-32); CHLORIDE 89 MMOL/L (98-107); CREATININE SERUM 0.85 MG/DL (0.60-1.30); GFR ESTIMATED > 60; GLUCOSE 160 MG/DL (70-105); POTASSIUM 4.8 MMOL/L (3.6-5.0); SODIUM 130 MMOL/L (135-145); TOTAL PROTEIN 6.3 G/DL (6.4-8.2)
[2016-11-19 13:17] LABS: MAGNESIUM 1.9 MG/DL (1.8-2.4); URIC ACID 5.2 MG/DL (2.6-7.2)
[2016-11-26 09:34] LABS: BASOPHILS % (AUTO) 0 % (0-10); EOSINOPHILS # (AUTO) 0.3 10^3/uL (0.0-0.3); EOSINOPHILS % (AUTO) 4 % (0-10); LYMPHOCYTES # (AUTO) 0.6 X 10^3 (1.0-4.0); LYMPHOCYTES % (AUTO) 9 % (12-44); MEAN CORPUSCULAR HEMOGLOBIN 30 PG (25-34); MEAN CORPUSCULAR HGB CONC 31 G/DL (32-36); MEAN CORPUSCULAR VOLUME 97 FL (80-99); MEAN PLATELET VOLUME 9.5 FL (7.4-10.4); MONOCYTES # (AUTO) 0.1 X 10^3 (0.0-1.0); MONOCYTES % (AUTO) 2 % (0-12); NEUTROPHILS % (AUTO) 86 % (42-75); PLATELET COUNT 173 10^3/uL (130-400); RED BLOOD COUNT 2.98 10^6/uL (4.35-5.85); RED CELL DISTRIBUTION WIDTH 17.2 % (10.0-14.5)
[2016-11-26 10:51] LABS: ALANINE AMINOTRANSFERASE 100 U/L (0-55); ALBUMIN 3.1 G/DL (3.2-4.5); ANION GAP 9 MMOL/L (5-14); ASPARTATE AMINO TRANSFERASE 97 U/L (5-34); BILIRUBIN,TOTAL 2.5 MG/DL (0.1-1.0); BLOOD UREA NITROGEN 30 MG/DL (7-18); BUN/CREATININE RATIO 43; CALCIUM 9.1 MG/DL (8.5-10.1); CARBON DIOXIDE 35 MMOL/L (21-32); CHLORIDE 94 MMOL/L (98-107); CREATININE SERUM 0.69 MG/DL (0.60-1.30); GFR ESTIMATED > 60; GLUCOSE 259 MG/DL (70-105); LACTATE DEHYDROGENASE 515 U/L (125-220); POTASSIUM 5.1 MMOL/L (3.6-5.0); SODIUM 138 MMOL/L (135-145); TOTAL PROTEIN 6.1 G/DL (6.4-8.2); URIC ACID 5.5 MG/DL (2.6-7.2)
[2016-12-03 10:26] LABS: BASOPHILS % (AUTO) 0 % (0-10); EOSINOPHILS # (AUTO) 0.2 10^3/uL (0.0-0.3); EOSINOPHILS % (AUTO) 6 % (0-10); LYMPHOCYTES # (AUTO) 0.4 X 10^3 (1.0-4.0); LYMPHOCYTES % (AUTO) 14 % (12-44); MEAN CORPUSCULAR HEMOGLOBIN 30 PG (25-34); MEAN CORPUSCULAR HGB CONC 33 G/DL (32-36); MEAN CORPUSCULAR VOLUME 93 FL (80-99); MEAN PLATELET VOLUME 9.5 FL (7.4-10.4); MONOCYTES # (AUTO) 0.6 X 10^3 (0.0-1.0); MONOCYTES % (AUTO) 20 % (0-12); NEUTROPHILS # (AUTO) 1.6 X 10^3 (1.8-7.8); NEUTROPHILS % (AUTO) 60 % (42-75); PLATELET COUNT 213 10^3/uL (130-400); RED BLOOD COUNT 3.23 10^6/uL (4.35-5.85); RED CELL DISTRIBUTION WIDTH 17.8 % (10.0-14.5); WHITE BLOOD COUNT 2.7 10^3/uL (4.3-11.0)
[2016-12-03 10:52] LABS: ALANINE AMINOTRANSFERASE 79 U/L (0-55); ALBUMIN 3.1 G/DL (3.2-4.5); ANION GAP 8 MMOL/L (5-14); ASPARTATE AMINO TRANSFERASE 58 U/L (5-34); BILIRUBIN,TOTAL 2.1 MG/DL (0.1-1.0); BLOOD UREA NITROGEN 15 MG/DL (7-18); BUN/CREATININE RATIO 22; CARBON DIOXIDE 33 MMOL/L (21-32); CHLORIDE 85 MMOL/L (98-107); CREATININE SERUM 0.69 MG/DL (0.60-1.30); GFR ESTIMATED > 60; GLUCOSE 254 MG/DL (70-105); LACTATE DEHYDROGENASE 296 U/L (125-220); SODIUM 126 MMOL/L (135-145); TOTAL PROTEIN 6.2 G/DL (6.4-8.2); URIC ACID 2.5 MG/DL (2.6-7.2)
[2016-12-10 11:31] LABS: BASOPHILS % (AUTO) 0 % (0-10); EOSINOPHILS # (AUTO) 0.1 10^3/uL (0.0-0.3); EOSINOPHILS % (AUTO) 1 % (0-10); LYMPHOCYTES # (AUTO) 0.5 X 10^3 (1.0-4.0); LYMPHOCYTES % (AUTO) 6 % (12-44); MEAN CORPUSCULAR HEMOGLOBIN 30 PG (25-34); MEAN CORPUSCULAR HGB CONC 32 G/DL (32-36); MEAN CORPUSCULAR VOLUME 93 FL (80-99); MEAN PLATELET VOLUME 9.2 FL (7.4-10.4); MONOCYTES # (AUTO) 1.6 X 10^3 (0.0-1.0); MONOCYTES % (AUTO) 18 % (0-12); NEUTROPHILS # (AUTO) 6.8 X 10^3 (1.8-7.8); NEUTROPHILS % (AUTO) 75 % (42-75); PLATELET COUNT 550 10^3/uL (130-400); RED BLOOD COUNT 3.38 10^6/uL (4.35-5.85); RED CELL DISTRIBUTION WIDTH 17.6 % (10.0-14.5)
[2016-12-10 11:55] LABS: ALANINE AMINOTRANSFERASE 79 U/L (0-55); ALBUMIN 3.2 G/DL (3.2-4.5); ANION GAP 12 MMOL/L (5-14); ASPARTATE AMINO TRANSFERASE 49 U/L (5-34); BILIRUBIN,TOTAL 1.7 MG/DL (0.1-1.0); BLOOD UREA NITROGEN 17 MG/DL (7-18); BUN/CREATININE RATIO 26; CALCIUM 9.3 MG/DL (8.5-10.1); CARBON DIOXIDE 33 MMOL/L (21-32); CHLORIDE 83 MMOL/L (98-107); CREATININE SERUM 0.65 MG/DL (0.60-1.30); GFR ESTIMATED > 60; GLUCOSE 255 MG/DL (70-105); LACTATE DEHYDROGENASE 240 U/L (125-220); MAGNESIUM 1.7 MG/DL (1.8-2.4); SODIUM 128 MMOL/L (135-145); TOTAL PROTEIN 6.2 G/DL (6.4-8.2); URIC ACID 2.5 MG/DL (2.6-7.2)
[~2016-12-16] VITALS: Ht 175.3 cm; Wt 79.8 kg
[~2016-12-16 09:32] MED LIST changes: +ALPR0.254 PO; +CARBOPLATIN 400 MG in D5W 50 ML IV(CANCER CTR) 50 ML IV SCH; +CARBOPLATIN IV SCH; +CLOP75TA28 PO; +D5W IV SCH; +DEXA4TAB PO; +DEXAMETHASONE INJ ONE; +DIPH25TA27 PO; +DOCU100C37 PO; +ETOPOSIDE 150 MG in NORMAL SALINE (CANCER CENTER) 500 ML IV SCH; +ETOPOSIDE IV SCH; +FAMOTIDINE 20MG/2ML IV (CANCER CTR) IV SCH; +FOSAPREPITANT 150 MG/NS 150 MG IVPB (CANCER CTR) IV PRN; +FUROSEMIDE 40 MG/4 ML INJ (CANCER CTR) IV ONE; +NITR0.4T SL; +NORMAL SALINE IV SCH; +NS INJ ONE; +NS IV 500 ML (CANCER CENTER) IV SCH; +OMEP40CA36 PO; +ONDA8TAB13 PO; +ONDANSETRON 16 MG, DEXAMETHASONE 10 MG/NS 50 ML IVPB IV SCH; +PALONOSETRON 0.25 MG, DEXAMETHASONE 10 MG/NS 50 ML IVPB IV PRN; +diphenhydrAMINE 25 MG TAB (BENADRYL) CANCER CENTER PO ONE; +diphenhydrAMINE 25 MG TAB (BENADRYL) CANCER CENTER PO SCH
== END 2016-12-19 | disposition home or self-care (01) ==
LOC: ONC 09:32
PROVIDERS: ATTEND Internal Medicine Hematology & Oncology
DX: Z51.11 Encounter for antineoplastic chemotherapy (principal); C34.32 Malignant neoplasm of lower lobe, left bronchus or lung; C78.7 Secondary malignant neoplasm of liver and intrahepatic bile duct; C79.51 Secondary malignant neoplasm of bone; K72.00 Acute and subacute hepatic failure without coma; D64.9 Anemia, unspecified; Z87.891 Personal history of nicotine dependence; Z79.899 Other long term (current) drug therapy
CPT/HCPCS: 36415; 36430; 36591; 80053; 82378; 83615; 83735; 84100; 84550; 85025; 86850; 86900; 86901; 86920; 96367; 96374; 96375; 96413; 96417; 99213; 99214

== ENCOUNTER 2016-12-19 12:56 | Inpatient (IN) | payer MEDICARE ==
[~2016-12-19] VITALS: Ht 182.9 cm; Wt 79.4 kg
[~2016-12-19 12:56] MED LIST changes: -CARBOPLATIN 400 MG in D5W 50 ML IV(CANCER CTR) 50 ML IV SCH; -CARBOPLATIN IV SCH; -D5W IV SCH; -DEXAMETHASONE INJ ONE; -ETOPOSIDE 150 MG in NORMAL SALINE (CANCER CENTER) 500 ML IV SCH; -ETOPOSIDE IV SCH; -FAMOTIDINE 20MG/2ML IV (CANCER CTR) IV SCH; -FOSAPREPITANT 150 MG/NS 150 MG IVPB (CANCER CTR) IV PRN; -FUROSEMIDE 40 MG/4 ML INJ (CANCER CTR) IV ONE; -NORMAL SALINE IV SCH; -NS INJ ONE; -NS IV 500 ML (CANCER CENTER) IV SCH; -ONDANSETRON 16 MG, DEXAMETHASONE 10 MG/NS 50 ML IVPB IV SCH; -PALONOSETRON 0.25 MG, DEXAMETHASONE 10 MG/NS 50 ML IVPB IV PRN; -diphenhydrAMINE 25 MG TAB (BENADRYL) CANCER CENTER PO ONE; -diphenhydrAMINE 25 MG TAB (BENADRYL) CANCER CENTER PO SCH
[2016-12-19 13:04] VITALS: BP 70/38
--- NOTE | 2016-12-19 13:07 | ED Respiratory ---
General Chief Complaint: Respiratory Problems Stated Complaint: SOA Source: patient Exam Limitations: no limitations History of Present Illness Time seen by provider: 13:04 Initial Comments To ER per EMS from via [facility] with reports of shortness of breath. Patient was also hypotensive with a systolic pressure in the 60s according to nursing staff. Oxygen saturation was 80 percent on 8 L high flow cannula. Patient is a DO NOT RESUSCITATE status with the diagnosis of small cell lung cancer with metastasis to the bone and liver and brain. Status post chemotherapy [address] Hope. and daughter are present and I have updated them that he is likely actively dying. We will give morphine to keep him comfortable and they are in agreement with this plan. Timing/Duration: just prior to arrival Severity: moderate Associated Symptoms: cough Allergies and Home Medications Allergies Coded Allergies: No Known Drug Allergies (Unverified , 11/04/16) Home Medications Alprazolam 0.25 Mg Tablet, 0.25 MG PO BID PRN for ANXIETY for 30 Days, #60 Prescribed by: MIKAYLA HOPE on 12/12/16 1653 Aspirin 325 Mg Tablet, 325 MG PO DAILY, (Reported) Benazepril HCl 10 Mg Tablet, 10 MG PO DAILY, (Reported) Carvedilol 12.5 Mg Tablet, 12.5 MG PO BID, (Reported) Clopidogrel Bisulfate 75 Mg Tablet, 75 MG PO DAILY, (Reported) Dexamethasone 4 Mg Tablet, 8 MG PO 0800 for 10 Days, #20 Prescribed by: MIKAYLA HOPE on 12/12/16 1653 Diphenhydramine HCl 25 Mg Tablet, 25 MG PO Q8H PRN for Nausea/Vomiting/allergy/ sleep for 60 Days, #120 Prescribed by: MIKAYLA HOPE on 12/12/16 1653 Docusate Sodium 100 Mg Capsule, 100 MG PO BID, (Reported) Loratadine 10 Mg Tablet, 10 MG PO DAILY PRN for ALLERGIES, (Reported) Metformin HCl 500 Mg Tablet, 500 MG PO TID, (Reported) Nitroglycerin 0.4 Mg Tab.subl, 0.4 MG SL DAILY PRN PRN for CHEST PAIN, (Reported ) Omeprazole 40 Mg Capsule.dr, 40 MG PO DAILY, (Reported) Ondansetron 8 Mg Tab.rapdis, 8 MG PO Q8H PRN for NAUSEA/VOMITING-1ST LINE, ( Reported) Simethicone 80 Mg Tab.chew, 80 MG PO TIDAC PRN for GAS, (Reported) Sitagliptin Phosphate 100 Mg Tablet, 100 MG PO DAILY, (Reported) Constitutional: see HPI EENTM: see HPI Respiratory: see HPI, cough Cardiovascular: no symptoms reported Genitourinary: no symptoms reported Musculoskeletal: no symptoms reported Skin: no symptoms reported Psychiatric/Neurological: No Symptoms Reported Hematologic/Lymphatic: No Symptoms Reported Immunological/Allergic: no symptoms reported Past Uwrqvvc-Jrtxeb-Gvowju Hx Patient Social History Type Used: Cigarettes Recent Hopitalizations: No Immunizations Up To Date Date of Pneumonia Vaccine: Nov 14, 2012 Date of Influenza Vaccine: May 18, 2016 Seasonal Allergies Seasonal Allergies: Yes (spring time) Surgeries HX Surgeries: Yes (leg vein bypass x3, ) Surgeries: Coronary Stent, Vascular Surgery Respiratory Hx Respiratory Disorders: Yes (LUNG MASSES,STARTED USING O2 AT HOME 4L) Cardiovascular Hx Cardiac Disorders: Yes (CHF) Cardiac Disorders: Coronary Artery Disease, Heart Attack, High Cholesterol, Peripheral Vascular Neurological Hx Neurological Disorders: No Reproductive System Hx Reproductive Disorders: No Sexually Transmitted Disease: No HIV/AIDS: No Genitourinary Hx Genitourinary Disorders: No Gastrointestinal Hx Gastrointestinal Disorders: Yes (LIVER MASS, ABD DISTENDED) Gastrointestinal Disorders: Liver Disease/Jaundice Musculoskeletal Hx Musculoskeletal Disorders: No Endocrine Hx Endocrine Disorders: Yes Cancer Hx Cancer: Yes Cancer: Brain, Liver, Lung Psychosocial Hx Psychiatric Problems: No Integumentary HX Skin/Integumentary Disorder: No Blood Transfusions Hx Blood Disorders: No Adverse Reaction to a Blood Tr: No Physical Exam Vital Signs Vital Sign - Last 12Hours 12/19/16 12/19/16 12:58 13:04 Temp 96.4 Pulse 87 Resp 16 B/P (MAP) 70/38 Pulse Ox 98 O2 Delivery NIV/Bilevel O2 Flow Rate 40.00 Capillary Refill : General Appearance: WD/WN, moderate distress, other (gasping for breath upon arrival to ER. Blood pressure 70/38, minimally alert. Morphine 2 mg IV given for air hunger. at the bedside as well as daughter. They've called family members to come the present) Eyes: Bilateral Eye EOMI, Bilateral Eye Normal Inspection, Bilateral Eye PERRL HEENT: PERRL/EOMI, normal ENT inspection Neck: non-tender, full range of motion Respiratory: no respiratory distress, no accessory muscle use, decreased breath sounds, accessory muscle use Gastrointestinal: normal bowel sounds, non tender, soft, distended Neurologic/Psychiatric: normal mood/affect Skin: cool, damp Progress/Results/Core Measures Results/Orders My Orders Orders - VIVIANE GERARD APRN Cbc With Automated Diff (12/19/16 13:02) BNP (12/19/16 13:02) Bipap Rt-Rfs (12/19/16 13:02) Chest 1 View, Ap/Pa Only (12/19/16 13:02) Comprehensive Metabolic Panel (12/19/16 13:02) Saline Lock/Iv-Start (12/19/16 13:02) Arterial Blood Gas (12/19/16 13:02) Morphine Injection (Morphine Injection (12/19/16 13:15) Medications Given in ED Current Medications Medications Dose Ordered Sig/Allan Route Start Time Stop Time Status Last Admin Dose Admin Morphine Sulfate 2 mg ONCE ONCE IVP 12/19/16 13:15 12/19/16 13:16 DC 12/19/16 13:35 2 MG Vital Signs/I&O Vital Sign - Last 12Hours 12/19/16 12/19/16 12:58 13:04 Temp 96.4 Pulse 87 85 Resp 16 17 B/P (MAP) 70/38 Pulse Ox 98 98 O2 Delivery NIV/Bilevel O2 Flow Rate 40.00 Departure Communication Time/Spoke to Admitting Phy: 13:37 Communication I discussed the case with Dr. Hope who agrees to admit the patient comfort care status. She is familiar with this patient. Progress Notes I discussed the patient's inevitable with the and daughter who is a pharmacist. Both are in agreement that comfort care would be our priority. Patient will be a DO NOT RESUSCITATE status and admitted to room 420 for comfort care. Impression Impression: Primary Impression: metastatic small cell lung cancer Additional Impressions: Respiratory distress End of life care Disposition: ADMITTED INPATIENT Condition: Critical Decision to Admit Reason: Admit from ER (General) Decision to Admit/Date: December 19, 2016 Time/Decision to Admit Time: 13:38 Departure-Patient Inst. Referrals: CHARLOTTE SANCHEZ MD (PCP/Family) Primary Care Physician Copy Copies To 1: CHARLOTTE SANCHEZ MD, PETER J APRN December 19, 2016 13:07
[2016-12-19] MEDS ORDERED: morphine INJ 10 MG/ML 1ML (SYR OR VIAL) IVP ONE (13:15)
[2016-12-19 13:35] VITALS: BP 70/30
[2016-12-19] MEDS ORDERED: LORazepam INJ 2 MG/ML (ATIVAN) VIAL IVP PRN (14:00)
[2016-12-19] MEDS ORDERED: ARTIFICAL TEARS 0.4 ML UNIT DOSE (REFRESH PLUS) OU PRN (14:00)
[2016-12-19] MEDS ORDERED: ACETAMINOPHEN 650 MG SUPP (TYLENOL) PR PRN (14:00)
[2016-12-19] MEDS ORDERED: RT-ALBUTEROL/IPRATROPIUM 3 ML (DUONEB) VIAL INH PRN (14:00)
[2016-12-19] MEDS ORDERED: ARTIFICIAL TEARS OINT (LACRI-LUBE) 3.5 GM TUBE OU PRN (14:00)
[2016-12-19] MEDS ORDERED: ONDANSETRON 4 MG/2 ML (SDV) Z0FRAN IV PRN (14:00)
[2016-12-19] MEDS ORDERED: SALIVA STIMULANT MOUTH SPRAY (BIOTENE) 1.5 OZ MM PRN (14:00)
[2016-12-19] MEDS ORDERED: BISACODYL 10 MG SUPP (DULCOLAX) PR PRN (14:00)
[2016-12-19] MEDS ORDERED: morphine INJ 4 MG/ML 1 ML (VIAL/SYRINGE) IV PRN (14:00)
--- NOTE | 2016-12-19 17:34 | Oncology Discharge Summary ---
Diagnosis/Chief Complaint Date of Admission December 19, 2016 at 13:18 Date of Discharge Discharge Diagnosis Small cell lung cancer, extensive disease, liver, bone and brain mets Liver failure Reason Hospital Visit Mr. Leyva is a 76 year old white man with diagnosis of extensive small cell lung cancer with liver, bone and brain mets. [facility] because of acute deteriorating and increase of SOB and hypoxia. Family decided to have comfort care only. He this evening peacefully with his family around the bedside. cause: Small cell lung cancer, extensive disease liver, bone and brain mets. Autopsy NOT indicated. Discharge Summary Discharge Instructions to patient/family Please see electonic discharge instructions given to patient. Discharge Medications Reviewed and agree with Discharge Medication list on patient's Discharge Instruction sheet Clinical Quality Measures DVT/VTE Risk/Contraindication: Risk Factor Score Per Nursin RFS Level Per Nursing on Admit: 4+=Very High PAYTON HOPE MD December 19, 2016 17:34
== END 2016-12-19 18:04 | disposition expired | DRG 181 ==
LOC: EDUNIT# 12:56 → ER 12:57 → 4TH 13:18
PROVIDERS: ADMIT Internal Medicine Hematology & Oncology; ATTEND Internal Medicine Hematology & Oncology
DX: C34.92 Malignant neoplasm of unspecified part of left bronchus or lung (principal); C79.51 Secondary malignant neoplasm of bone; C78.7 Secondary malignant neoplasm of liver and intrahepatic bile duct; C79.31 Secondary malignant neoplasm of brain; K72.90 Hepatic failure, unspecified without coma; R06.00 Dyspnea, unspecified; Z66 Do not resuscitate; Z51.5 Encounter for palliative care
CPT/HCPCS: 96374